=== PATIENT | female | born 1995 | race Caucasian/White ===

== ENCOUNTER 2025-08-31 05:19 | Inpatient (IN) ==
--- NOTE | 2025-08-24 13:09 | Anesthesiology Consultation ---
Date of Service August 24, 2025 Assessment & Plan (1) Encounter for pre-operative examination: - Per entry level finance on 08/24/25: No known infectious disease contacts, current infectious disease symptoms in past 10 days or COVID positive test result in the past 30 days. Chart Review Chart Review: entry level finance initiated History Surgery Operation Date: 08/31/25 07:30 Proposed Procedures p Section in LD (Delivery of Baby through abdominal incision) - Renetta Owens MD Height/Weight Height: 5 ft 2 in Weight: 106.594 kg Allergies Allergy/AdvReac Type Severity Reaction Status Date / Time cephalexin [From Keflex] Allergy Intermediate Hives Verified 08/24/25 12:31 ciprofloxacin [From Cipro] Allergy Intermediate Hives Verified 08/24/25 12:31 Medications Home Medications Medication Instructions Recorded Confirmed Last Taken 1 cap PO QAM 08/24/25 08/24/25 Unknown ferrous sulfate 325 mg (65 mg 325 mg PO QAM 08/24/25 08/24/25 Unknown iron) tablet (Iron (ferrous sulfate)) Past Medical History Medical History (Updated 08/24/25 @ 13:09 by Mai Galeana PA-C) Anemia affecting Anxiety Varicella vaccination hx Past Family History Family History Mother Fibromyalgia Rheumatoid arthritis Father Hypertension Denies family history of Ovarian cancer Breast cancer Colorectal cancer Past Surgical History Surgical History History of esophagogastroduodenoscopy (EGD) S/P cholecystectomy S/P eye surgery tear duct S/P wisdom tooth extraction Social History Smoking Status: Never smoker Do You Dip or Chew Tobacco: No Hx Alcohol Use: Yes alcohol intake frequency: holidays/special occasions only Alcohol Intake Frequency Comment: "not while " Hx Substance Use: No substance use type: does not use Lab Results Anesthesia Preop Results Results Anesthesia Widget: Hgb 10.2 g/dl (12.0-16.0) L 07/18/25 Hct 33.0 % (37.0-47.0) L 07/18/25
[2025-08-31] MEDS ORDERED: SODIUM CHLORIDE 0.9% 100 ML IV PRN (06:01)
[2025-08-31 06:08] LABS: Hematocrit (blood only) 29.6 % (37.0-47.0); Hemoglobin 9.4 g/dL (12.0-16.0); Mean Corpuscular Hemoglobin 24.4 pg (25.0-34.0); Mean Corpuscular Volume 76.7 fL (80.0-100.0); Platelet Count 247 K/uL (130-400); RDW Standard Deviation 40.8 fL (36.4-46.3); Red Blood Count 3.86 M/uL (4.20-5.40); White Blood Count 10.17 K/ul (4.8-10.8)
[2025-08-31] MEDS: ACETAMINOPHEN 500 MG TAB PO SCH (06:10)
[2025-08-31] MEDS: LACTATED RINGER'S 1,000 ML IV SCH ×2 (06:11→19:29)
[2025-08-31] MEDS ORDERED: PHENYLEPHRINE HCL 10 MG/ML VIAL ONE (06:35)
[2025-08-31] MEDS ORDERED: MoRPHine SULFATE PF 1 MG/ML 10 ML AMP/VIAL ONE (06:35)
[2025-08-31] MEDS ORDERED: OXYTOCIN 10 UNITS/ML VIAL ONE ×3 (06:43→06:44)
[2025-08-31] MEDS: CITRIC ACID/SODIUM CITRATE 15 ML UDC PO SCH (07:12)
[2025-08-31] MEDS: ceFAZolin 3,000 MG/72.5 ML BAG IV SCH (07:28)
[2025-08-31] MEDS ORDERED: NALOXONE HCL 1 MG in SODIUM CHLORIDE 0.9% 1,000 ML IV PRN (07:55)
[2025-08-31] MEDS ORDERED: NALBUPHINE HCL INJ 10 MG/ML AMP IV PRN (07:55)
[2025-08-31] MEDS ORDERED: HYDROmorphone INJ 0.5 MG/0.5 ML SYR IV PRN (07:55)
[2025-08-31] MEDS ORDERED: NALOXONE HCL 0.4 MG/1 ML VIAL/CARP IV PRN (07:55)
[2025-08-31] MEDS ORDERED: diphenhydrAMINE 50 MG/ML VIAL IV PRN (07:55)
[2025-08-31] MEDS ORDERED: ONDANSETRON INJ 2 MG/ML 2 ML VIAL IV PRN (07:55)
[2025-08-31] MEDS ORDERED: LACTATED RINGER'S 500 ML IV PRN (07:55)
[2025-08-31] MEDS ORDERED: NO NARCOTICS OR SEDATIVES SCH (08:00)
[2025-08-31] MEDS ORDERED: DC INTRASPINAL MORPHINE SCH (08:00)
[2025-08-31] MEDS ORDERED: ONDANSETRON INJ 2 MG/ML 2 ML VIAL ONE (08:09)
--- NOTE | 2025-08-31 08:31 | Operative Report ---
PG Post Operative Report Pre & Post Diagnosis Operation Date: 08/31/25 07:30 Pre-Op Diagnosis: SIUP @ Term Large for gestational age. Desires sterilization. Post-Op Diagnosis: Same I identified the patient and participated in the time-out.: Yes Procedure Operation Date: 08/31/25 07:30 Actual Procedures Low Transverse Section, Bilateral Salpingectomy Surgeon Renetta Owens MD Chef Manager Iza Estimated Blood Loss 529 (QBL) Findings Consistent with Post-Op Diagnosis Specimens placenta, cord blood Anesthesia Type Spinal Complications none Disposition Accompanied Patient To Recovery: Yes Disposition: L&D Description of Procedure The patient was placed operating table in the supine position with a leftward tilt. She was prepped and draped in standard sterile fashion. The anesthetic was tested and found to be adequate. A time-out was held, identifying correct patient, procedure, positioning and preoperative antibiotics. There were no concerns. A Pfannenstiel skin incision was made with a knife and taken down to the underlying layer of fascia. The fascia was incised in the midline with the knife and taken out laterally with scissors. The superior edge of the fascial incision was grasped, elevated and dissected off the underlying rectus both superiorly and inferiorly. The muscles were bluntly in the midline. The peritoneum was entered bluntly. The incision was then stretched. The bladder retractor was placed. The vesicouterine peritoneum was identified, entered with scissors and taken out laterally with scissors. The bladder flap was created digitally. A hysterotomy incision was created transversely in the lower uterine segment, final entry being accomplished in a blunt manner with the cracking machine operator's fingers. Clear amniotic fluid was encountered. The cracking machine operator's hand was used to elevate the head to the hysterotomy. The head was delivered using mild fundal pressure, and the shoulders and body followed without difficulty. The cord was clamped and cut and the infant was then handed off to the awaiting unit educator. Cord blood was obtained. The placenta was Manually extracted. The uterus was exteriorized and cleared of all clot and debris with moistened laparotomy sponges. The hysterotomy incision was repaired in two layers, the first in a running locked layer, the second in an imbricating layer. The ovaries and tubes were seen to be normal bilaterally. The tubes were elevated and excised using LigaSure after verbal confirmation of desire for sterilization. The uterus was gently replaced in the abdomen, and the gutters were cleared of clot and debris. A final inspection of the hysterotomy revealed good hemostasis. The rectus muscles were allowed to reapproximate naturally. The fascia was then reapproximated with 1 Vicryl in a running nonlocked manner. The fascia was examined and found to be free of defect following closure. The subcutaneous tissue was copiously irrigated and reapproximated with 0-chromic, then the skin edges were closed with 4-0 monocryl in a subcuticular fashion. A dermabond dressing was applied. The sims was found to be draining clear yellow urine at completion of the procedure. I attest to the content of the Intraoperative Record and any orders documented therein. Any exceptions are noted below. I attest to the content of the Intraoperative Record and any orders documented therein. Any exceptions are noted below. OB Procedure Charges 32128 [id number] Add on Tubal for C/S
[2025-08-31] MEDS ORDERED: SENNA 8.6 MG TAB PO PRN (08:35)
[2025-08-31] MEDS ORDERED: CALCIUM CARBONATE 500 MG CHEWABLE TAB PO PRN (08:35)
[2025-08-31] MEDS ORDERED: BENZOCAINE 20% SPRY 85 APPLN/85 GM CAN EXT PRN (08:35)
[2025-08-31] MEDS ORDERED: MAGNESIUM HYDROXIDE SUSP 30 ML UDC PO PRN (08:35)
[2025-08-31] MEDS ORDERED: HYDROCORTISONE ACETATE 25 MG SUPP PR PRN (08:35)
[2025-08-31] MEDS: KETOROLAC 30 MG/ML VIAL IV SCH (10:14)
[2025-08-31] MEDS: OXYTOCIN 20 UNITS/LR 1,002 ML IV SCH (12:39)
[2025-08-31] MEDS: ACETAMINOPHEN 325 MG TAB PO SCH (15:05)
[2025-08-31] MEDS: SIMETHICONE 80 MG CHEW PO SCH (15:05)
--- NOTE | 2025-08-31 15:14 | Anesthesiology Progress Note ---
Date of Service August 31, 2025 Anesthesia Post Procedure Vital Signs Vital Signs: Temp Pulse Pulse Pulse Resp BP BP 08/31/25 13:15 36.6 C 101 H 18 109/70 08/31/25 12:53 95 H 08/31/25 12:48 98 H 08/31/25 12:43 100 H 08/31/25 12:38 101 H 08/31/25 12:33 116 H 08/31/25 12:28 106 H 08/31/25 12:23 103 H 08/31/25 12:21 91 H 08/31/25 12:18 93 H 08/31/25 12:13 95 H 08/31/25 12:08 85 08/31/25 12:03 93 H 08/31/25 11:58 90 08/31/25 11:53 94 H 08/31/25 11:48 85 08/31/25 11:43 88 08/31/25 11:38 92 H 08/31/25 11:35 89 113/71 08/31/25 11:33 89 08/31/25 11:32 88 08/31/25 11:28 96 H 08/31/25 11:23 92 H 08/31/25 11:18 87 08/31/25 11:13 92 H 08/31/25 11:08 89 08/31/25 11:03 93 H 08/31/25 10:58 83 08/31/25 10:53 89 08/31/25 10:48 89 08/31/25 10:43 89 08/31/25 10:38 08/31/25 10:38 91 H 08/31/25 10:38 93 H 08/31/25 10:34 36.6 C 18 08/31/25 10:33 87 08/31/25 10:32 97 H 115/70 08/31/25 10:28 87 08/31/25 10:23 85 08/31/25 10:22 86 114/72 08/31/25 10:18 83 08/31/25 10:13 08/31/25 10:13 89 08/31/25 10:13 96 H 113/67 08/31/25 10:08 82 08/31/25 10:03 08/31/25 10:03 100 H 08/31/25 10:03 104 H 107/74 08/31/25 10:02 90 08/31/25 09:58 89 08/31/25 09:53 89 08/31/25 09:52 85 111/74 08/31/25 09:48 83 08/31/25 09:43 89 08/31/25 09:42 08/31/25 09:42 101 H 08/31/25 09:42 98 H 108/65 08/31/25 09:37 85 08/31/25 09:32 93 H 108/66 08/31/25 09:27 91 H 08/31/25 09:22 93 H 119/58 L 08/31/25 09:17 92 H 08/31/25 09:12 08/31/25 09:12 91 H 08/31/25 09:12 93 H 113/64 08/31/25 09:07 08/31/25 09:07 100 H 08/31/25 09:07 93 H 08/31/25 09:02 96 H 113/59 L 08/31/25 08:57 87 08/31/25 08:52 92 H 114/58 L 08/31/25 08:47 92 H 08/31/25 08:42 08/31/25 08:42 91 H 08/31/25 08:42 92 H 103/59 L 08/31/25 08:40 91 H 08/31/25 08:37 84 08/31/25 08:34 36.6 C 91 H 18 08/31/25 08:32 92 H 111/57 L 08/31/25 05:46 36.7 C 88 18 117/66 08/31/25 05:45 36.7 C 18 Pulse Ox O2 Del Method 08/31/25 13:15 96 Room Air 08/31/25 12:53 97 08/31/25 12:48 97 08/31/25 12:43 94 08/31/25 12:38 95 08/31/25 12:33 95 08/31/25 12:28 94 08/31/25 12:23 94 08/31/25 12:21 93 08/31/25 12:18 95 08/31/25 12:13 95 08/31/25 12:08 96 08/31/25 12:03 96 08/31/25 11:58 97 08/31/25 11:53 96 08/31/25 11:48 96 08/31/25 11:43 95 08/31/25 11:38 96 08/31/25 11:35 08/31/25 11:33 96 08/31/25 11:32 94 08/31/25 11:28 95 08/31/25 11:23 96 08/31/25 11:18 95 08/31/25 11:13 97 08/31/25 11:08 96 08/31/25 11:03 97 08/31/25 10:58 96 08/31/25 10:53 97 08/31/25 10:48 97 08/31/25 10:43 97 08/31/25 10:38 98 08/31/25 10:38 08/31/25 10:38 91 08/31/25 10:34 08/31/25 10:33 97 08/31/25 10:32 08/31/25 10:28 97 08/31/25 10:23 97 08/31/25 10:22 08/31/25 10:18 98 08/31/25 10:13 96 08/31/25 10:13 08/31/25 10:13 08/31/25 10:08 98 08/31/25 10:03 96 08/31/25 10:03 08/31/25 10:03 08/31/25 10:02 93 08/31/25 09:58 99 08/31/25 09:53 98 08/31/25 09:52 08/31/25 09:48 98 08/31/25 09:43 99 08/31/25 09:42 93 08/31/25 09:42 08/31/25 09:42 08/31/25 09:37 99 08/31/25 09:32 97 08/31/25 09:27 100 08/31/25 09:22 100 08/31/25 09:17 100 08/31/25 09:12 100 08/31/25 09:12 08/31/25 09:12 08/31/25 09:07 100 08/31/25 09:07 08/31/25 09:07 91 08/31/25 09:02 99 08/31/25 08:57 99 08/31/25 08:52 99 08/31/25 08:47 99 08/31/25 08:42 98 08/31/25 08:42 08/31/25 08:42 08/31/25 08:40 90 08/31/25 08:37 96 08/31/25 08:34 Room Air 08/31/25 08:32 97 08/31/25 05:46 08/31/25 05:45 Room Air Notes Mental Status: alert / awake / arousable Patient Amnestic to Procedure: Yes Nausea / Vomiting: adequately controlled Pain: adequately controlled Airway Patency, RR, SpO2: stable & adequate BP & HR: stable & adequate Hydration State: stable & adequate Neuraxial Anesthesia: was administered and sensory block is resolving Anesthetic Complications: no major complications apparent
[2025-08-31] MEDS: MoRPHine SULFATE PF 1 MG/ML 10 ML AMP/VIAL INT SPINAL ONE (19:28)
[2025-08-31] MEDS: SODIUM CHLORIDE 0.9% 1,000 ML IV SCH (19:29)
[2025-08-31] MEDS: DIPHTHER/TETAN/PERTUS Vaccine (Tdap, Adol/Adult) 0.5mL IM ONE (19:33)
[2025-08-31] MEDS: DOCUSATE SODIUM 100 MG CAP PO SCH (20:24)
[2025-08-31] MEDS: NALOXONE HCL 0.08 MG in SYRINGE 1.8 ML IV PRN (23:57)
[2025-09-01] MEDS ORDERED: PROMETHAZINE 12.5 MG/50.5 ML BAG IV PRN (01:56)
[2025-09-01] MEDS ORDERED: ONDANSETRON INJ 2 MG/ML 2 ML VIAL IV PRN (01:56)
[2025-09-01] MEDS ORDERED: diphenhydrAMINE 50 MG/ML VIAL IV PRN (01:56)
[2025-09-01] MEDS ORDERED: HYDROmorphone INJ 0.5 MG/0.5 ML SYR IV PRN (01:56)
[2025-09-01] MEDS ORDERED: diphenhydrAMINE Capsule 25 MG CAP PO PRN (01:56)
[2025-09-01 06:33] LABS: Hematocrit (blood only) 25.0 % (37.0-47.0); Hemoglobin 7.9 g/dL (12.0-16.0); Immature Granulocytes # (auto) 0.04 K/uL (0.01-0.20); Immature Granulocytes % (auto) 0.4 %; Mean Corpuscular Hemoglobin 24.5 pg (25.0-34.0); Mean Corpuscular Volume 77.6 fL (80.0-100.0); Platelet Count 206 K/uL (130-400); RDW Standard Deviation 41.7 fL (36.4-46.3); Red Blood Count 3.22 M/uL (4.20-5.40); White Blood Count 8.89 K/ul (4.8-10.8)
[2025-09-01 06:56] LABS: Polychromasia 1+; Tear Drop Cells 1+
--- NOTE | 2025-09-01 07:14 | Obstetrical Progress Note ---
Date of Service September 01, 2025 Assessment & Plan (1) LGA (large for gestational age) fetus affecting management of mother: (2) delivery delivered: Plan Routine ppx care Subjective Ambulation: ambulating normally Voiding: no voiding problems Passing Gas:: Yes Diet Tolerance:: regular diet Lochia:: Small Feeding Type:: bottle feeding Current Pain Level(1-10): 0 Physical Exam Constitutional WD/WN, vitals as above Eyes PERRL, conjunctivae normal, anicteric sclerae ENMT external ear and nose normal, oropharynx normal Neck trachea midline, no thyromegaly Respiratory normal respiratory effort and able to speak in complete sentences; no respiratory distress, no labored breathing and does not use accessory muscles Cardiovascular Rate/Rhythm: regular rate and regular rhythm Extremities: no calf tenderness and no pedal edema Chest (Breasts) Breast: normal inspection of breasts Gastrointestinal (Abdomen) Inspection/Auscultation: abdomen normal to inspection; abdomen not distended c/d/i with glue Musculoskeletal no cyanosis or clubbing, extremities motor strength 5/5 Skin no rashes, warm and dry Neurologic patellar DTR's 2+ bilat, sensation intact Psychiatric A+Ox3, euthymic affect Genitourinary Speculum/Bimanual Exam: uterus nontender OB Exam Abdomen: + fundal height (at umbilicus) Fundus: + firm Results & Data Vital Signs (Past 12 Hours) Vital Signs Temp Pulse Resp BP Pulse Ox O2 Del Method 09/01/25 02:52 98.1 F 85 18 117/76 97 Room Air 09/01/25 02:00 16 100 09/01/25 01:00 16 98 08/31/25 23:20 98.1 F 85 18 98/66 L 97 Room Air 08/31/25 23:00 16 98 08/31/25 22:00 16 100 08/31/25 21:00 16 97 08/31/25 20:20 98.1 F 93 H 18 103/68 96 Room Air
[2025-09-01] MEDS ORDERED: KETOROLAC 30 MG/ML VIAL IV PRN (08:14)
[2025-09-01] MEDS: IBUPROFEN 600 MG TAB PO SCH (08:22)
[2025-09-01] MEDS: FERROUS SULFATE 325 MG TAB PO SCH (08:22)
[2025-09-01] MEDS: PRENATAL VITAMIN 1 TAB PO SCH (08:22)
[2025-09-02 06:26] LABS: Hematocrit (blood only) 26.0 % (37.0-47.0); Hemoglobin 8.2 g/dL (12.0-16.0)
--- NOTE | 2025-09-02 07:08 | Obstetrical Progress Note ---
Date of Service September 02, 2025 Assessment & Plan (1) delivery delivered: Plan Plan d/c home. Instructions reviewed. f/u in 6 weeks. Call with any concerns or issues. Day #:: 2 Subjective Ambulation: ambulating normally Voiding: no voiding problems Passing Gas:: Yes Diet Tolerance:: regular diet Lochia:: Small Feeding Type:: bottle feeding Notes her legs feel tight from swelling and sore. Physical Exam Constitutional WD/WN, vitals as above Cardiovascular Extremities: + edema (+1 , equal); no calf tenderness Gastrointestinal (Abdomen) obese, soft, nt, nd, ff/nt at u incision c/d/i Psychiatric A+Ox3, euthymic affect Results & Data Vital Signs (Past 12 Hours) Vital Signs Temp Pulse Resp BP Pulse Ox O2 Del Method 09/01/25 23:07 36.8 C 89 19 117/77 95 Room Air 09/01/25 19:34 36.7 C 89 18 100/66 96 Room Air
[2025-09-02] MEDS: IBUPROFEN 600 MG TAB PO PRN (08:04)
[2025-09-02 08:36] VITALS: BP 99/67; RESP 18; TEMP 98.1; O2SAT 97
[2025-09-02 09:55] VITALS: PULSE 91
[2025-09-02] MEDS ORDERED: ACETAMINOPHEN 325 MG TAB PO PRN (14:14)
== END 2025-09-02 10:30 | disposition home or self-care (01) | DRG 785 ==
LOC: PREOBSVTOIN 05:19 → SUATTDRO 05:24 → 4S1 05:24 → EDSTATUS 07:30 → 4E2 13:19